=== PATIENT | male | born 1995 | race Caucasian/White ===

== ENCOUNTER 2017-03-09 08:02 | Emergency (ER) | payer OTHER ==
[~2017-03-09] VITALS: Ht 177.8 cm; Wt 77.1 kg
[2017-03-09 08:08] VITALS: BP 138/82
--- NOTE | 2017-03-09 09:33 | ED SKIN/ALLERGY COMPLAINT ---
History of Present Illness General Chief Complaint: Skin Rash/ Abcess Stated Complaint: RASH Source: patient Exam Limitations: no limitations Vital Signs & Intake/Output Vital Signs & Intake/Output Vital Signs Date Time Temp Pulse Resp B/P B/P Pulse O2 O2 Flow FiO2 Mean Ox Delivery Rate 03/09 0808 98.4 52 18 138/82 100 Room Air Allergies Coded Allergies: No Known Allergies (03/09/17) Reconcile Medications Cephalexin 250 MG CAPSULE 1 CAP PO 4 TIMES/DAY CELLULITIS Hydrocortisone 2.5 % CREAM..G. 1 PEARL TOP BIDP PRN RASH apply to affected area(s) Triage Note: PT TO ED FOR RASH TO L SIDE OF FACE AND GROIN AREA. PT STATING HE HAD A BUG BITE TO HIS EAR AND USED A VERY OLD BOTTLE OF ANTI ITCH LOTION. FINE RASH NOTED, NO S/S OF ALLERGIC RXN NOTED. Triage Nurses Notes Reviewed? yes HPI: 21M NO PMH WITH RASH ON THE LEFT SIDE OF HIS FACE. GOT BIT BY A [place]QU[place]O YESTERDAY AND USED A VERY OLD ANTI-ITCH LOTION ON HIS FACE. A FEW HOURS LATER HE DEVELOPED AN URTICARIAL RASH ON THE LEFT SIDE OF HIS FACE THAT IS PRURITIC. THE RASH HAS ALSO SPREAD TO HIS TESTICLES. HE IS UNSURE IF HE TOUCHED HIS TESTICLES AFTER TOUCHING HIS FACE WITH THE LOTION. DENIES FEVER, CHILLS, HEADACHE, NECK STIFFNESS, EAR PAIN, EYE PAIN, VISION OR HEARING CHANGES, SORE THROAT, CHEST PAIN, SOB, ABOMINAL PAIN, DIARRHEA, DYSURIA, PENILE DISCHARGE, TESTICULAR PAIN. Past History Travel History Traveled to [place] past 21 day No Medical History Any Pertinent Medical History? see below for history Neurological: NONE EENT: NONE Cardiovascular: NONE Respiratory: NONE Gastrointestinal: NONE Hepatic: NONE Renal: NONE Musculoskeletal: NONE Psychiatric: NONE Endocrine: NONE Blood Disorders: NONE Cancer(s): NONE Surgical History Surgical History: non-contributory Psychosocial History What is your primary language Monegasque Tobacco Use: Never used ETOH Use: denies use Illicit Drug Use: marijuana Family History Hx Contributory? No Review of Systems Review of Systems Constitutional: Reports: no symptoms. EENTM: Reports: no symptoms. Respiratory: Reports: no symptoms. Cardiovascular: Reports: no symptoms. GI: Reports: no symptoms. Genitourinary: Reports: no symptoms. Musculoskeletal: Reports: no symptoms. Skin: Reports: see HPI. Neurological/Psychological: Reports: no symptoms. Hematologic/Endocrine: Reports: no symptoms. Immunologic/Allergic: Reports: no symptoms. All Other Systems: Reviewed and Negative Physical Exam Physical Exam General Appearance: well developed/nourished, mild distress Head: atraumatic Eyes: Bilateral: normal appearance. Ears, Nose, Throat: normal pharynx, normal ENT inspection, hearing grossly normal Neck: normal inspection, supple Respiratory: normal breath sounds Cardiovascular: regular rate/rhythm Gastrointestinal: soft, non-tender Back: normal inspection Extremities: normal inspection, normal range of motion, no edema Neurologic/Psych: awake, alert, oriented x 3, normal mood/affect Skin: URTICARIAL RASH ON THE LEFT SIDE OF FACE NOT EXTENDING TO EAR OR EYE, SIMILAR RASH ON TESTICLES, NO TENDERNESS, DISCHARGE, OR SWELLING Lymphatic: no anterior cervical daniella Progress Differential Diagnosis: abscess/cellulitis, allergic reaction, anaphylaxis, angioedema, asthma, contact dermatitis, drug reaction, erythema multiforme, lyme disease, meningitis/sepsis, piyriasis rosea, RMSF, scarlet fever, shingles, syphilis/gonococcemia, toxic shock syndrome, urticaria Plan of Care: Current Medications Sig/Lexii Start time Last Medication Dose Stop Time Status Admin Hydrocortisone 1 PEARL ONCE ONE 03/09 945 UNVr 03/09 946 DISCHARGE HOME WITH CORTISONE AND CEPHALEXIN, [facility] Departure Departure Time of Disposition: 931 Disposition: HOME OR SELF CARE Condition: Stable Clinical Impression Primary Impression: Allergic dermatitis Referrals: PATIENT HAS NO PRIMARY CARE DR (PCP/Family) Additional Instructions: KEEP THE AREA CLEAN AND DRY. THROW AWAY THE CREAM YOU USED ON YOUR FACE. ONCE THE RASH SUBSIDES, YOU MAY STOP USING THE CREAM, BUT KEEP TAKING THE ANTIBIOTIC. COME BACK TO ER IF FEVER, CHILLS, CHANGES IN HEARING, EYE OR EAR PAIN, TESTICULAR PAIN. Departure Forms: Customer Survey General Discharge Information Prescriptions: Current Visit Scripts Hydrocortisone 1 PEARL TOP BIDP PRN RASH #30 GM apply to affected area(s) Cephalexin 1 CAP PO 4 TIMES/DAY #28 CAP
[2017-03-09] MEDS ORDERED: CEPHALEXIN250 M2 PO (09:35)
[2017-03-09] MEDS ORDERED: HYDROCORTISO453.6 G2 TOP (09:35)
== END 2017-03-09 09:49 ==
LOC: ERH 08:02
DX: L23.3 Allergic contact dermatitis due to drugs in contact with skin (principal); R21 Rash and other nonspecific skin eruption